=== PATIENT | male | born 1935 | race Caucasian/White ===

== ENCOUNTER → 2020-06-23 09:55 | Outpatient (CLI) | payer MEDICARE, OTHER, SELFPAY ==
[2020-06-23 11:41] LABS: Hematocrit 25.7 % (41-53); Hemoglobin 8.6 g/dL (13.5-17.5); Mean Corpuscular HGB Conc 33.5 % (30-36); Mean Corpuscular Volume 98.6 fL (80-100); Platelet Count 54 X10^3/uL (150-400); Red Blood Cell Count 2.61 X10^6/uL (4.5-5.9)
[2020-06-23 12:09] LABS: Add Manual Diff / Slide Review YES; White Blood Cell Count 35.3 X10^3/uL (4.5-11.0)
[2020-06-23 12:36] LABS: Neutrophils Absolute Manual 1412 /uL (3000-5900); Total Cells Counted 100
[2020-06-23 12:37] LABS: Anisocytosis 1+
[2020-06-23 12:38] LABS: Smudge Cells 1+
== END ==
DX: C91.10 Chronic lymphocytic leukemia of B-cell type not having achieved remission (principal)
CPT/HCPCS: 36415; 85025